=== PATIENT | female | born 1985 | race Caucasian/White ===

== ENCOUNTER → 2017-09-07 10:02 | Emergency (ER) | payer BC | END | disposition left against medical advice (07) | LOC: UCEAST 10:02 | DX: R09.89 Other specified symptoms and signs involving the circulatory and respiratory systems (principal); Z53.21 Procedure and treatment not carried out due to patient leaving prior to being seen by health care provider ==

== ENCOUNTER 2017-09-07 10:38 | Emergency (ER) | payer BC ==
[2017-09-07] MEDS ORDERED: Al Hydrox/Mg Hydrox/Simet LIQ* 30 ML UDC PO ONE (11:17)
[2017-09-07] MEDS ORDERED: Pantoprazole TAB (NF) 40 MG TAB PO ONE (11:17)
[2017-09-07] MEDS ORDERED: Lidocaine 2% VISCOUS* 15 ML UDC PO ONE (11:17)
--- NOTE | 2017-09-07 11:23 | ED ---
HPI Chest Pain - HPI Summary HPI Summary: This is scribe Edin Tellez documenting for attending Thiago Hill MD. Patient is a 32 y/o F w/ c/o chest pressure and esophageal tightness onsetting two days ago. Pain is located at the epigastric area with radiation to the retrosternal area. She describes the esophageal tightness as "something clamping " on her esophagus. She states she is experiencing difficulty drinking and eating. Three days ago, the initial pain onset and is described as a severe heartburn. The patient took OTC antacids to treat Sx. It became the current pain of pressure and esophageal tightness two days ago. N/V, SOB, and dizziness are denied. On triage, pain is rated 3/10. She states lying down worsens Sx. Nothing is noted to alleviate symptoms. No similar prior episode is claimed. She reports a typical personal diet in the past few days. She denies smoking, drug use. Patient drinks socially. FHx of heart disease and CVA is noted. Home medications and allergies are reviewed. - History of Current Complaint Chief Complaint: EDChestPainROMI Time Seen by Provider: 09/07/17 11:09 Hx Obtained From: Patient Onset/Duration: Started Days Ago - current Sx onset two days ago; initial burning pain onset 3 days ago Timing: Constant Current Severity: Mild - 3/10 Pain Intensity: 3 Pain Scale Used: 0-10 Numeric - 3/10 Chest Pain Location: Diffuse - epigastric area Chest Pain Radiates: Yes Chest Pain Radiates To:: Other - retrosternal area Character: Pressure/Squeezing, Tightness - esophageal tightness Aggravating Factor(s): Rest - lying down, Other: - food/fluids Alleviating Factor(s): Nothing Associated Signs and Symptoms: Positive: Chest Pain. Negative: Dizziness, Shortness of Breath, Nausea, Vomiting - Allergy/Home Medications Allergies/Adverse Reactions: Allergies Allergy/AdvReac Type Severity Reaction Status Date / Time No Known Allergies Allergy Verified 09/07/17 10:58 Home Medications: Home Medications Cyred 28 Day Tablet 1 tab PO DAILY 09/07/17 [History Confirmed 09/07/17] PMH/Surg Hx/FS Hx/Imm Hx History: Reports: Other Problems/Disorders - endometriosis Sensory History: Denies: Hx Legally Blind - Surgical History Surgery Procedure, Year, and Place: laporoscopic removal of left side ovarian cyst Infectious Disease History: No Infectious Disease History: Denies: Traveled Outside the [place] in Last 30 Days - Family History Known Family History: Positive: Cardiac Disease, Other - Mother's side CVA - Social History Alcohol Use: Occasionally Substance Use Type: Reports: None Smoking Status (MU): Never Smoked Tobacco Review of Systems Positive: Chest Pain - described as pressure; esophageal tightness Negative: Shortness Of Breath Negative: Vomiting, Nausea Neurological: Other - NEGATIVE: dizziness All Other Systems Reviewed And Are Negative: Yes Physical Exam - Summary Physical Exam Summary: VITAL SIGNS: Reviewed. GENERAL: Patient is a well-developed and nourished female who is lying comfortable in the stretcher. Patient is not in any acute respiratory distress. HEAD AND FACE: No signs of trauma. No ecchymosis, hematomas or skull depressions. No sinus tenderness. EYES: PERRLA, EOMI x 2, No injected conjunctiva, no nystagmus. EARS: Hearing grossly intact. Ear canals and tympanic membranes are within normal limits. MOUTH: Oropharynx within normal limits. NECK: Supple, trachea is midline, no adenopathy, no JVD, no carotid bruit, no c- spine tenderness, neck with full ROM. CHEST: Symmetric, no tenderness at palpation LUNGS: Clear to auscultation bilaterally. No wheezing or crackles. CVS: Regular rate and rhythm, S1 and S2 present, no murmurs or gallops appreciated. ABDOMEN: Soft, non-tender. No signs of distention. No rebound no guarding, and no masses palpated. Bowel sounds are normal. EXTREMITIES: FROM in all major joints, no edema, no cyanosis or clubbing. NEURO: Alert and oriented x 3. No acute neurological deficits. Speech is normal and follows commands. SKIN: Dry and warm Triage Information Reviewed: Yes Vital Signs On Initial Exam: Initial Vitals Temp Pulse Resp BP Pulse Ox 97.8 F 86 18 149/88 100 09/07/17 10:54 09/07/17 10:54 09/07/17 10:54 09/07/17 10:54 09/07/17 10:54 Vital Signs Reviewed: Yes Diagnostics - Vital Signs Vital Signs Temp Pulse Resp BP Pulse Ox 09/07/17 10:54 97.8 F 86 18 149/88 100 - Laboratory Result Diagrams: 09/07/17 11:19 09/07/17 11:19 Lab Statement: Any lab studies that have been ordered have been reviewed, and results considered in the medical decision making process. - Radiology CXR Xray Interpretation: No Acute Changes Radiology Interpretation Completed By: Radiologist - Normal chest. This report was reviewed by ED physician. - EKG 1125 Cardiac Rate: NL - Rate of 75 BPM EKG Rhythm: Sinus Rhythm EKG Interpretation: No ST elevation, normal axis Re-Evaluation - Re-Evaluation First Eval Re-Evaluation Time: 12:38 Comment: Discussed labs, test results, and follow-up plan for patient. Patient is agreeable with the plan and therefore will be discharged to home and follow up with a PCP within three days. Chest Pain Course/Dx - Course Assessment/Plan: This patient is a 32-year-old female who presents to the emergency department with a chief complaint of Epigastric pain with radiation to the retrosternal area. She reports that on Sunday after she had a meal she developed this reflux and she had severe burning pain along the esophagus. Then the pain became kind of a pressure pain in the area therefore she decided to come to the emergency department for further workup and management. She denies any nausea vomiting shortness of breath or dizziness. She has no past medical history a comorbidities. The patient does have any family history of heart disease at her age. Blood test results without any significant abnormality, EKG shows no ST elevations, troponin is 0.00, and a chest x-ray shows no acute pathology. In the ED course the patient was going given a GI cocktail and Protonix and HER symptoms resolved. At this point the patient is asymptomatic. D-dimer is 225 which is negative. Therefore have no suspicion for PE. I discussed all the findings and test results with the patient. Patient was instructed to return to the emergency room immediately if any of the symptoms return or worsens. Plan of care was discussed with the patient and understands and agrees. All questions were answered at patient satisfaction. There were no further complaints or concerns. Lung exam before discharge: CTA B/L. Good air exchange. No wheezing or crackles heard. CVS: S1 and S2 present. No murmurs appreciated. Patient is alert and oriented x 3. Patient is hemodynamically stable. Patient will be discharged home with follow up PCP in the next 2-3 days - Chest Pain Differential Diagnosis/HQI/PQRI: Acute OH, ACS, Angina, Chest Wall, GI Disease, Lower Respiratory Infection - Diagnoses Provider Diagnoses: Atypical chest pain, GERD (gastroesophageal reflux disease) Discharge - Sign-Out/Discharge Documenting (check all that apply): Patient Departure - discharge - Discharge Plan Condition: Stable Disposition: HOME Prescriptions: Omeprazole CAP* [Prilosec CAP* 20 MG] 20 mg PO DAILY #14 cap. Patient Education Materials: Chest Pain (ED), Gastroesophageal Reflux Disease ( ED) Referrals: [facility] [Outside] - 3 Days Additional Instructions: Return to ED for any new or worsening symptoms.
[2017-09-07 11:32] LABS: ABS Basophils 0 10^3/ul (0-0.2); ABS Eosinophils 0.3 10^3/ul (0-0.6); ABS Lymphocytes 1.1 10^3/ul (1.0-4.8); ABS Monocytes 0.5 10^3/ul (0-0.8); ABS Neutrophils 4.7 10^3/ul (1.5-7.7); ABS Nucleated RBC 0 10^3/ul; Eosinophil % 4.5 % (0-6); Hematocrit 40 % (35-47); Lymphocyte % 16.4 % (25-47); Mean Corpuscular HGB Conc 35 g/dl (31-36); Mean Corpuscular Hemoglobin 35 pg (27-31); Mean Corpuscular Volume 100 fL (80-97); Mean Platelet Volume 7.2 um3 (7.4-10.4); Nucleated Red Blood Cells % 0; Platelet Count 260 10^3/ul (150-450); Red Blood Count 4.04 10^6/ul (4.00-5.40); Red Cell Distribution Width 12 % (10.5-15); White Blood Count 6.6 10^3/ul (3.5-10.8)
[2017-09-07 11:54] LABS: EGFR Non-African American 94.8 (>60)
--- NOTE | 2017-09-07 12:14 | RAD ---
INDICATION: Chest pain COMPARISON: None TECHNIQUE: PA and lateral dual-energy views were obtained. FINDINGS: Bones/Soft Tissues: There are no acute bony findings. Cardiomediastinal: The cardiomediastinal silhouette is normal. Lungs: There are no infiltrates. Pleura: There are no pleural effusions. Other: None IMPRESSION: NORMAL CHEST
[2017-09-07] MEDS ORDERED: Omeprazole CAP* 20 MG PO ONE (13:00)
[2017-09-07 13:01] VITALS: BP 142/96
== END 2017-09-07 13:00 | disposition home or self-care (01) ==
LOC: ED 10:38
DX: R07.89 Other chest pain (principal); K21.9 Gastro-esophageal reflux disease without esophagitis; Z82.49 Family history of ischemic heart disease and other diseases of the circulatory system
CPT/HCPCS: 36415; 71046; 80053; 82550; 83605; 83880; 84443; 84484; 84702; 85025; 85379; 93005; 99283; A9270-GY